=== PATIENT | female | born 1940 | race Caucasian/White ===

== ENCOUNTER 2024-07-08 13:10 | Emergency (ER) | payer MEDICARE ==
[~2024-07-08] VITALS: Ht 162.6 cm; Wt 53.1 kg
[2024-07-08 13:45] LABS: BASOPHILS % (AUTO) 0.8 % (0.0-2.0); EOSINOPHILS % (AUTO) 0.6 % (0.0-7.0); HEMATOCRIT 34.6 % (31.2-41.9); HEMOGLOBIN 11.4 g/dL (10.9-14.3); LYMPHOCYTES # (AUTO) 1.2 K/uL (0.8-4.8); LYMPHOCYTES % (AUTO) 21.6 % (20.5-51.5); MEAN CORPUSCULAR HEMOGLOBIN 29.8 uug (24.7-32.8); MEAN CORPUSCULAR HGB CONC 33 g/dL (32.3-35.6); MEAN CORPUSCULAR VOLUME 90.4 fL (75.5-95.3); MONOCYTES # (AUTO) 0.5 K/uL (0.1-1.30); MONOCYTES % (AUTO) 8.2 % (0.0-11.0); NEUTROPHILS # (AUTO) 3.9 K/uL (1.8-8.9); NEUTROPHILS % (AUTO) 68.8 % (38.5-71.5); PLATELET COUNT (AUTO) 257 K/uL (179-408); RED BLOOD CELL COUNT(AUTO) 3.83 MIL/uL (3.63-4.92); RED CELL DISTRIBUTION WIDTH 14.8 % (12.3-17.7); WHITE BLOOD COUNT (AUTO) 5.7 K/uL (3.8-11.8)
[2024-07-08 13:48] LABS: DIFFERENTIAL COMMENT 1
[2024-07-08 13:53] LABS: CALCIUM 8.7 mg/dL (8.5-10.1); CARBON DIOXIDE 25 mmol/L (21-32); CHLORIDE 108 mmol/L (98-107); CREATININE 0.8 mg/dL (0.6-1.3); GLUCOSE 65 mg/dL (74-106); POTASSIUM 3.8 mmol/L (3.5-5.1); SODIUM SERUM 144 mmol/L (136-145); UREA NITROGEN, BLOOD 21 mg/dL (7-18)
[2024-07-08] MEDS ORDERED: LEVO100T PO (13:55)
[2024-07-08] MEDS ORDERED: OMEP20TA20 PO (13:56)
[2024-07-08] MEDS ORDERED: PRAV20TA4 PO (13:56)
[2024-07-08 14:06] LABS: ALANINE AMINOTRANSFERASE 31 U/L (14-59); ALKALINE PHOSPHATASE 64 U/L (50-136); ASPARTATE AMINOTRANSFERASE 30 U/L (15-37); BILIRUBIN,DIRECT 0.1 mg/dL (0.0-0.2); BILIRUBIN,TOTAL 0.5 mg/dL (0.2-1.0); NT-PRO BNP 264 pg/mL (0-125); TOTAL PROTEIN, SERUM 6.4 g/dL (6.4-8.2)
[2024-07-08] MEDS: IV NORMAL SALINE 1000 ML BAG IV ONE (15:13)
[2024-07-08 18:31] VITALS: BP 130/50; TEMP 98.5; O2SAT 97
== END 2024-07-08 18:36 | disposition home or self-care (01) ==
LOC: ER 13:10
DX: I49.8 Other specified cardiac arrhythmias (principal); I24.89 Other forms of acute ischemic heart disease; Z79.899 Other long term (current) drug therapy
CPT/HCPCS: 99291; 96360; 80076; 80048; 83880; 85025; 85379; 85730; 84484 ×2; 36415; 71045; 93005; J7040; A4606; A4663